=== PATIENT | female | born 1960 | race Caucasian/White ===

== ENCOUNTER 2016-11-15 10:38 | Day surgery (SDC) | payer OTHER ==
[~2016-11-15] VITALS: Ht 167.6 cm; Wt 72.6 kg
[~2016-11-15 10:38] MED LIST: ATARAX,VISTARIL25 MG PO; B COMPLETE1 EACH PO; CALTRATE PLUS1 EACH PO; CITALOPRAM HBR10 MG PO; CLONIDINE HCL0.1 MG PO; CYANOCOBAL1000 MCG/2 IM; DAILY MULTIPLE1 EACH PO; FISH OIL 1,0001 EAC7 PO; GABAPENTIN400 MG PO; LODINE300 MG PO; METOPROLOL SUCC50 MG PO; PREDNISONE50 MG PO; RISPERDAL1 MG PO; SPIRONOLACTONE25 MG PO
[2016-11-15 11:49] LABS: POINT-OF-CARE METER ID UU14174212
== END 2016-11-15 14:15 | disposition home or self-care (01) ==
LOC: PAIN 10:38 → SDC 11:15 → PAIN 11:45 → CATH 11:45 → PAIN 14:15
PROVIDERS: Anesthesiology Pain Medicine
PROC: 3E0S33Z Introduction of Anti-inflammatory into Epidural Space, Percutaneous Approach (ICD-10-PCS; principal; 2016-11-15)
DX: M54.13 Radiculopathy, cervicothoracic region (principal); M50.20 Other cervical disc displacement, unspecified cervical region; M79.7 Fibromyalgia; E11.9 Type 2 diabetes mellitus without complications; J45.909 Unspecified asthma, uncomplicated; E78.5 Hyperlipidemia, unspecified; I10 Essential (primary) hypertension
CPT/HCPCS: 82948; J1030; J2250; J3010

== ENCOUNTER → 2017-05-24 | Outpatient (CLI) | payer OTHER | END | disposition home or self-care (01) | LOC: CDC 14:55 | DX: M75.42 Impingement syndrome of left shoulder (principal); M25.512 Pain in left shoulder; M75.112 Incomplete rotator cuff tear or rupture of left shoulder, not specified as traumatic; R94.31 Abnormal electrocardiogram [ECG] [EKG] | CPT/HCPCS: 93000 ==

== ENCOUNTER 2017-06-07 10:58 | Day surgery (SDC) | payer OTHER ==
[~2017-06-07] VITALS: Ht 167.6 cm; Wt 72.6 kg
[~2017-06-07 10:58] MED LIST changes: +BUSPAR5 MG PO; +CELEXA20 MG PO; -CITALOPRAM HBR10 MG PO; -GABAPENTIN400 MG PO; +MOBIC15 MG PO; +NEURONTIN600 MG PO; +NORCO 5/3251 TABLET PO; +ROBAXIN750 MG PO
[2017-06-07 12:00] VITALS: BP 114/66
[2017-06-07 16:34] VITALS: BP 157/73
[2017-06-07 18:28] VITALS: BP 132/68
== END 2017-06-07 18:30 | disposition home or self-care (01) ==
LOC: SDC
DX: M75.02 Adhesive capsulitis of left shoulder (principal); M75.42 Impingement syndrome of left shoulder; I10 Essential (primary) hypertension; G47.30 Sleep apnea, unspecified; J44.9 Chronic obstructive pulmonary disease, unspecified; Z82.49 Family history of ischemic heart disease and other diseases of the circulatory system; Z83.3 Family history of diabetes mellitus; Z87.891 Personal history of nicotine dependence
CPT/HCPCS: J0131; J0171; J0690; J1100; J1170; J1885; J2250; J2310; J2405; J2795; J3010